=== PATIENT | female | born 1985 | race Caucasian/White ===

== ENCOUNTER 2019-04-11 17:22 | Emergency (ER) | payer OTHER ==
[2019-04-11 17:59] VITALS: BP 139/83
[2019-04-11] MEDS ORDERED: Ondansetron ODT TAB* 4 MG PO ONE (18:45)
--- NOTE | 2019-04-11 18:51 | UC ---
Headache HPI - HPI Summary HPI Summary: 33-year-old female comes in with a chief complaint of frontal headache nausea vomiting and vertigo. Couple hours ago patient was crying and then she started with frontal sinus headache that then proceeded to nausea and vomiting and feelings of vertigo. Patient reports that anytime she cries she gets similar symptoms although not always as bad. She believes it's because her sinuses do not drain very well. At this time the patient's new to [place] and does not have a primary care doctor or an ENT doctor. No sinusitis symptoms. No fevers no chills. She vomited several times and had some spinning dizziness with this episode. She does feel mildly improved upon my initial evaluation. No weakness or numbness or change in vision or speech. Today also the patient tripped and fell and and suffered a 1 cm shallow avulsion laceration on her right index finger. Patient wonders if she needs any antibiotics. Finger has full range of motion patient is not concerned of any broken bones. - History Of Current Complaint Chief Complaint: UCHeadaobinna Stated Complaint: SINUS PRESSURE, VOMITING Time Seen by Provider: 04/11/19 18:32 Hx Last Menstrual Period: 1 week ago Pain Intensity: 3 - Allergies/Home Medications Allergies/Adverse Reactions: Allergies Allergy/AdvReac Type Severity Reaction Status Date / Time morphine Allergy n/v Verified 04/11/19 17:59 PMH/Surg Hx/FS Hx/Imm Hx Previously Healthy: Yes - Surgical History Surgical History: Yes Surgery Procedure, Year, and Place: wisdom teeth extraction, tonsillectomy - Family History Known Family History: Positive: Non-Contributory - Social History Alcohol Use: Rare Substance Use Type: None Smoking Status (MU): Never Smoked Tobacco Review of Systems All Other Systems Reviewed And Are Negative: Yes Constitutional: Positive: Negative Skin: Positive: Other - SEE HPI Eyes: Positive: Negative ENT: Positive: Sinus Congestion, Sinus Pain/Tenderness Respiratory: Positive: Negative Cardiovascular: Positive: Negative Gastrointestinal: Positive: Negative Motor: Positive: Negative Neurovascular: Positive: Negative Musculoskeletal: Positive: Negative Neurological: Positive: Headache Psychological: Positive: Negative Is Patient Immunocompromised?: No Physical Exam Triage Information Reviewed: Yes Appearance: Well-Appearing, No Pain Distress, Well-Nourished Vital Signs: Initial Vital Signs Temp 96.9 F 04/11/19 17:54 Pulse 92 04/11/19 17:54 Resp 16 11/21/19 17:54 BP 139/83 04/11/19 17:54 Pulse Ox 100 04/11/19 17:54 Vital Signs Reviewed: Yes Eye Exam: Normal Eyes: Positive: Conjunctiva Clear, Other: - PERRLA EOMI. No photophobia. ENT: Positive: Pharynx normal, Sinus tenderness - FRONTAL Neck: Positive: Supple Respiratory: Positive: Lungs clear, Normal breath sounds, No respiratory distress Cardiovascular: Positive: RRR Musculoskeletal: Positive: Strength Intact, ROM Intact Neurological: Positive: Alert Psychological: Positive: Age Appropriate Behavior Skin Exam: Normal Headache Course/Dx - Course Course Of Treatment: Patient is improving in the clinic. Patient given Zofran 4 mg ODT in clinic. Center prescription home for more Zofran and also for meclizine to be used as needed. Prescription for Keflex to be used if there is any signs of infection on the finger. No signs of infection at this time. With the patient's recurrent headaches with any kind of crying and her sinus problems I recommended follow-up with ENT. Patient's also given the physician referral phone number to obtain a primary care physician. Reevaluate sooner if worse or any questions or concerns. - Differential Dx/Diagnosis Provider Diagnosis: Headache, Nausea & vomiting, Vertigo, Laceration of right index finger Discharge ED - Sign-Out/Discharge Documenting (check all that apply): Patient Departure All imaging exams completed and their final reports reviewed: No Studies - Discharge Plan Condition: Stable Disposition: HOME Prescriptions: Cephalexin CAP* [Keflex CAP*] 500 mg PO TID #21 cap Meclizine HCl [Motion Sickness Relief] 25 mg PO Q6HR PRN #20 tablet PRN Reason: Vertigo Ondansetron ODT TAB* [Zofran 4 MG Odt TAB*] 4 mg PO Q6H PRN #15 tab.odt PRN Reason: Nausea Patient Education Materials: Vertigo (ED), Acute Headache (ED), Acute Nausea and Vomiting (ED), Finger Laceration (ED) Referrals: [facility]FERRAL [Outside] Pedro Milligan MD [Medical Doctor] - Stephen Diaz MD [Medical Doctor] - Additional Instructions: FOLLOW UP WITH YOUR PRIMARY CARE DOCTOR IF NOT COMPLETELY IMPROVED. FOLLOW UP WITH ENT FOR YOUR SINUS ISSUES. GET REEVALUATED SOONER IF NOT IMPROVED OR WORSE OR ANY QUESTIONS OR CONCERNS. - Billing Disposition and Condition Condition: STABLE Disposition: Home
== END 2019-04-11 19:14 | disposition home or self-care (01) ==
LOC: UCEAST 17:22
DX: S61.210A Laceration without foreign body of right index finger without damage to nail, initial encounter (principal); R11.2 Nausea with vomiting, unspecified; R42 Dizziness and giddiness; R09.89 Other specified symptoms and signs involving the circulatory and respiratory systems; Z88.5 Allergy status to narcotic agent; W01.0XXA Fall on same level from slipping, tripping and stumbling without subsequent striking against object, initial encounter; Y92.9 Unspecified place or not applicable
CPT/HCPCS: 99202; A9270-GY; G0463

== ENCOUNTER 2019-08-10 17:33 | Emergency (ER) | payer OTHER ==
--- NOTE | 2019-08-10 17:55 | UC ---
Complaint Female HPI - HPI Summary HPI Summary: R sided abd pain which has since resolved and returned that started this AM. She feels its UTI but not sure. declines sti testing. - History Of Current Complaint Chief Complaint: UCAbdominalPain Stated Complaint: RT SIDE ABDOMINAL PAIN Time Seen by Provider: 08/10/19 17:54 Hx Obtained From: Patient Hx Last Menstrual Period: just getting over it Pain Intensity: 4 Pain Scale Used: 0-10 Numeric Aggravating Factor(s): Urination Alleviating Factor(s): Nothing - Allergies/Home Medications Allergies/Adverse Reactions: Allergies Allergy/AdvReac Type Severity Reaction Status Date / Time morphine Allergy n/v Verified 08/10/19 17:51 Home Medications: Home Medications Meclizine HCl [Motion Sickness Relief] 25 mg PO Q6HR PRN #20 tablet 04/11/19 [ Rx Confirmed 08/10/19] Nitrofurantoin Macrocrystals* [Macrodantin 100 mg*] 100 mg PO BID 10 Days #20 cap 08/10/19 [Rx] PMH/Surg Hx/FS Hx/Imm Hx - Additional Past Medical History Additional PMH: no chronic illness Previously Healthy: Yes - Surgical History Surgical History: Yes Surgery Procedure, Year, and Place: wisdom teeth extraction, tonsillectomy - Family History Known Family History: Positive: Non-Contributory - Social History Alcohol Use: Rare Substance Use Type: None Smoking Status (MU): Never Smoked Tobacco Review of Systems All Other Systems Reviewed And Are Negative: Yes Constitutional: Negative: Fever Gastrointestinal: Positive: Abdominal Pain - right sided Genitourinary: Positive: Frequency. Negative: Vaginal/Penile Discharge, Vaginal /Penile Pain Physical Exam Triage Information Reviewed: Yes Appearance: Well-Appearing Vital Signs Reviewed: Yes Respiratory: Positive: No respiratory distress Abdomen Description: Positive: Nontender, Soft. Negative: CVA Tenderness (R), CVA Tenderness (L), Guarding Complaint Female Dx - Course Course Of Treatment: Presumed UTI in afebrile pt. but stone or other etiologies cannot be ruled out. For now will tx but have asked pt to go to ED should pain worsen in any way. exam unremarkable. declined sti testing. of note i wore mask and goggles w/ hair coverage. - Differential Dx/Diagnosis Differential Diagnosis/HQI/PQRI: Appendicitis, Ovarian Cyst, Ovarian Torsion, Other Provider Diagnosis: Right sided abdominal pain Discharge ED - Sign-Out/Discharge Documenting (check all that apply): Patient Departure All imaging exams completed and their final reports reviewed: No Studies - Discharge Plan Condition: Good Disposition: HOME Prescriptions: Nitrofurantoin Macrocrystals* [Macrodantin 100 mg*] 100 mg PO BID 10 Days #20 cap Patient Education Materials: Urinary Tract Infection in Women (ED) Referrals: No Primary Care Phys,NOPCP [Primary Care Provider] - Additional Instructions: see patient education if pain is worsening please go to ED - Billing Disposition and Condition Condition: GOOD Disposition: Home
[2019-08-10 18:02] VITALS: BP 145/97
[2019-08-10] MEDS ORDERED: Nitrofurantoin Macrocrystals* 50 MG CAP PO ONE (18:53)
== END 2019-08-10 18:58 | disposition home or self-care (01) ==
LOC: UCEAST 17:33
DX: R10.31 Right lower quadrant pain (principal); R35.0 Frequency of micturition; Z88.5 Allergy status to narcotic agent
CPT/HCPCS: 81003; 84702; 87086; 99212; A9270-GY; G0463

== ENCOUNTER 2019-08-10 20:14 | Emergency (ER) | payer OTHER ==
[2019-08-10] MEDS ORDERED: NS 0.9% 1000 ML** 1,000 ML IV ONE (20:25)
[2019-08-10] MEDS ORDERED: Ketorolac INJ* 30 MG/ML 1 ML VIAL IV PUSH ONE (20:40)
[2019-08-10 20:51] LABS: ABS Eosinophils 0.1 10^3/ul (0-0.6); ABS Lymphocytes 1.7 10^3/ul (1.0-4.8); ABS Neutrophils 10.6 10^3/ul (1.5-7.7); Hematocrit 43 % (35-47); Hemoglobin 14.9 g/dL (12.0-16.0); Lymphocyte % 12.5 %; Mean Corpuscular HGB Conc 35 g/dL (31-36); Mean Corpuscular Hemoglobin 31 pg (27-31); Mean Corpuscular Volume 89 fL (80-97); Mean Platelet Volume 7.7 fL (7.4-10.4); Platelet Count 370 10^3/uL (150-450); Red Blood Count 4.86 10^6 /uL (3.70-4.87); Red Cell Distribution Width 13 % (10-15); White Blood Count 13.4 10^3/uL (3.5-10.8)
--- NOTE | 2019-08-10 21:01 | ED ---
Abdominal Pain/Female - HPI Summary HPI Summary: 33 year old F presenting to [facility] via private car has a chief complaint of right abdominal pain since 0400 on 08/10/2019. The patient states that her abdominal pain "starts as a slow little ebb" that evolves into a constant throbbing. She states that her pain was temporarily alleviated after taking a nap at 0400 on 08/10/2019 but later returned. The patient rates the pain as 7/ 10 in severity. Patient denies having experiencing this pain before. She states that her right abdominal pain radiates towards the right side of her back. She denies fever and vomiting. Patient states that she has blood in her urine due to her menstrual cycle. Patient denies PMHx of kidney stones, gallstones, ovarian cysts, ovarian torsions. Patient states that she occasionally drinks. Patient denies having eaten since 08/09/2019. Home Medications Medication Instructions Recorded Confirmed Type Meclizine HCl [Motion Sickness 25 mg PO Q6HR PRN #20 tablet 04/11/19 08/10/19 Rx Relief] Nitrofurantoin Macrocrystals* 100 mg PO BID 10 Days #20 cap 08/10/19 Rx [Macrodantin 100 mg*] - History of Current Complaint Chief Complaint: EDAbdPain Stated Complaint: RIGHT ABD PAIN PER PT Time Seen by Provider: 08/10/19 20:23 Hx Obtained From: Patient Hx Last Menstrual Period: just getting over it Onset/Duration: Still Present Pain Intensity: 7 Pain Scale Used: 0-10 Numeric Alleviating Factor(s): Other: - Patient states that her right sided abdominal pain was temporarily alleviated by taking a nap. Associated Signs and Symptoms: Positive: Back Pain - Patient states that her right sided abdominal pain radiates to her lower back., Other: - Patient states that she has blood in her urine due to her menstrual cycle.. Negative: Fever, Vomiting Allergies/Adverse Reactions: Allergies Allergy/AdvReac Type Severity Reaction Status Date / Time morphine Allergy n/v Verified 08/10/19 20:16 Home Medications: Home Medications Meclizine HCl [Motion Sickness Relief] 25 mg PO Q6HR PRN #20 tablet 04/11/19 [ Rx Confirmed 08/11/19] Ondansetron HCl [Zofran] 4 mg PO Q8HR PRN #12 tablet 08/11/19 [Rx] Tamsulosin CAP* [Flomax CAP*] 0.4 mg PO DAILY #5 cap 08/11/19 [Rx] PMH/Surg Hx/FS Hx/Imm Hx GI History: Denies: Hx Gall Bladder Disease History: Denies: Hx Kidney Stones, Other Problems/Disorders - Patient denies having a history of ovarian cysts and ovarian torsions. - Surgical History Surgery Procedure, Year, and Place: wisdom teeth extraction, tonsillectomy Infectious Disease History: No Infectious Disease History: Denies: Traveled Outside the [place] in Last 30 Days - Family History Known Family History: Positive: Non-Contributory Negative: Blood Disorder - Social History Alcohol Use: Rare Substance Use Type: Reports: None Smoking Status (MU): Never Smoked Tobacco Review of Systems Negative: Fever Positive: Abdominal Pain - Right sided abdominal pain. . Negative: Vomiting Positive: hematuria - Patient states that she has blood in her urine due to her menstrual cycle. Positive: Other - Patient states that her abdominal pain radiates to her lower back. All Other Systems Reviewed And Are Negative: Yes Physical Exam - Summary Physical Exam Summary: Constitutional: Well-developed, Well-nourished, Alert. (-) Distressed Skin: Warm, Dry HENT: Normocephalic; Atraumatic Eyes: Conjunctiva normal Neck: Musculoskeletal ROM normal neck. (-) JVD, (-) Stridor, (-) Tracheal deviation Cardio: Rhythm regular, rate normal, Heart sounds normal; Intact distal pulses; The pedal pulses are 2+ and symmetric. Radial pulses are 2+ and symmetric. (-) Murmur Pulmonary/Chest wall: Effort normal. (-) Respiratory distress, (-) Wheezes, (-) Rales Abd: Soft, (+) tenderness, (-) Distension, (-) Guarding, (-) Rebound. Patient has right sided abdominal tenderness upon palpitation. Musculoskeletal: (-) Edema Lymph: (-) Cervical adenopathy Neuro: Alert, Oriented x3 Psych: Mood and affect Normal Triage Information Reviewed: Yes Vital Signs On Initial Exam: Initial Vitals Temp Pulse Resp BP Pulse Ox 98.3 F 90 15 142/104 99 08/10/19 20:15 08/10/19 20:15 08/10/19 20:15 08/10/19 20:15 03/21/20 20:15 Vital Signs Reviewed: Yes Procedures - Sedation Patient Received Moderate/Deep Sedation with Procedure: No Diagnostics - Vital Signs Vital Signs Temp Pulse Resp BP Pulse Ox 08/10/19 20:15 98.3 F 90 15 142/104 99 - Laboratory Lab Results: Lab Results 08/10/19 Range/Units 20:36 WBC 13.4 H (3.5-10.8) 10^3/uL RBC 4.86 (3.70-4.87) 10^6 /uL Hgb 14.9 (12.0-16.0) g/dL Hct 43 (35-47) % MCV 89 (80-97) fL MCH 31 (27-31) pg MCHC 35 (31-36) g/dL RDW 13 (10-15) % Plt Count 370 (150-450) 10^3/uL MPV 7.7 (7.4-10.4) fL Neut % (Auto) 78.5 % Lymph % (Auto) 12.5 % [place] % (Auto) 7.7 % Eos % (Auto) 1.0 % Baso % (Auto) 0.3 % Absolute Neuts (auto) 10.6 H (1.5-7.7) 10^3/ul Absolute Lymphs (auto) 1.7 (1.0-4.8) 10^3/ul Absolute Monos (auto) 1.0 H (0-0.8) 10^3/ul Absolute Eos (auto) 0.1 (0-0.6) 10^3/ul Absolute Basos (auto) 0.0 (0-0.2) 10^3/ul Absolute Nucleated RBC 0.0 10^3/ul Nucleated RBC % 0.0 Result Diagrams: 08/10/19 20:36 08/10/19 20:36 Lab Statement: Any lab studies that have been ordered have been reviewed, and results considered in the medical decision making process. - CT Abdominal/Pelvic CT CT Interpretation Completed By: Radiologist Summary of CT Findings: IMPRESSION: 1. Distal right ureteral calculus measuring 2-3 mm adjacent to the UVJ with. obstructive uropathy of the right upper tract. 2. 2.5 cm right ovarian cyst. 3. Fatty infiltration of the liver with multiple cysts. Dr. Vargas has reviewed this impression. Abdominal Pain Fem Course/Dx - Course Course Of Treatment: Patient presented to [facility] with a chief complaint of right abdominal radiating pain since 0400 on 08/10/2019. The patient rates the pain as 7/10 in severity. Patient denies having experiencing this pain before. She denies fever and vomiting, but states that her right abdominal pain radiates towards the right side of her back. Patient states that she has blood in her urine due to her menstrual cycle. Patient denies PMHx of kidney stones, gallstones, ovarian cysts, ovarian torsions. Her physical exam is postive for right sided abdominal tenderness upon palpitation. Her abdominal/pelvic CT showed (1) distal right ureteral calculus measuring 2-3 mm adjacent to the UVJ with. obstructive uropathy of the right upper tract, (2) 2.5 cm right ovarian cyst, and (3) fatty infiltration of the liver with multiple cysts. The following abnormalities were found in her blood work: 13.4 WBC, 10.6 Absolute Neuts, 1.0 Absolute Monos, 0.96 Creatinine, 24.0 BUN/Creatinine Ratio, 1.30 Total Bilirubin. The following abnormalities were found in her urine sample: 1.009 ur specific gravity, 1+ urine ketones, 2+ urine blood, 1+ (3-5/hpf) urine RBC, Ur squamous epith cells present. She recieved the following medications during ED stay: 25 mg of IV Benadryl, 1 mg of Dilaudid INJ, 137 mL of Omnipaque 300 Constrast, 30 mg of Toradol INJ, 10 mg of IV Reglan , 1000 mL of Ns 0.9% 2x , 4 mg Zofran INJ, 0.4 mg Flomax CAP. Patient was discharged to home to followup with a urologist within 2 days. - Diagnoses Provider Diagnoses: Ureteral stone Discharge ED - Sign-Out/Discharge Documenting (check all that apply): Patient Departure - Discharge. - Discharge Plan Condition: Stable Disposition: HOME Prescriptions: Ondansetron HCl [Zofran] 4 mg PO Q8HR PRN #12 tablet PRN Reason: Nausea/Vomiting Tamsulosin CAP* [Flomax CAP*] 0.4 mg PO DAILY #5 cap Patient Education Materials: Ureteral Stones (ED) Referrals: David Medina MD [Medical Doctor] - 2 Days Additional Instructions: Please return to ED for new or worse symptoms. Please follow up with urologist within 2 days. - Billing Disposition and Condition Condition: STABLE Disposition: Home - Attestation Statements Document Initiated by Scribe: Yes Documenting Scribe: Leora Thorpe Provider For Whom Scribe is Documenting (Include Credential): Lee Vargas DO Scribe Attestation: Leora Pham, scribed for Lee Vargas DO on at 1909. Scribe Documentation Reviewed: Yes Provider Attestation: The documentation as recorded by the scribe, Leora Thorpe accurately reflects the service I personally performed and the decisions made by , Lee Vargas DO Status of Scribe Document: Viewed
[2019-08-10 21:08] LABS: ALT 31 U/L (7-52); AST 23 U/L (13-39); Albumin 4.2 g/dL (3.2-5.2); Albumin/Globulin Ratio 1.2 (1-3); Alkaline Phosphatase 56 U/L (34-104); Anion Gap 6 mmol/L (2-11); Blood Urea Nitrogen 23 mg/dL (6-24); C Reactive Protein 7.74 mg/L (<8.01); CO2 Carbon Dioxide 26 mmol/L (22-32); Calcium 9.7 mg/dL (8.6-10.3); Chloride 103 mmol/L (101-111); EGFR Non-African American 66.1 (>60); Globulin 3.6 g/dL (2-4); Glucose 93 mg/dL (70-100); Potassium 3.9 mmol/L (3.5-5.0); Sodium 135 mmol/L (135-145); Total Protein 7.8 g/dL (6.4-8.9)
[2019-08-10 21:15] LABS: HCG Pregnancy < 0.60 mIU/mL
[2019-08-10] MEDS ORDERED: Iohexol 300* (CONTRAST) 10 ML SDV IV ONE (21:43)
[2019-08-10 23:20] LABS: Urine Appearance Clear; Urine Bilirubin Negative (Negative); Urine Blood 2+ (Negative); Urine Color Yellow; Urine Glucose Negative (Negative); Urine Ketones 1+ (Negative); Urine Nitrite Negative (Negative); Urine Protein Negative (Negative); Urine Specific Gravity 1.009 (1.010-1.030); Urine Urobilinogen Negative (Negative)
[2019-08-10 23:21] LABS: Urine Bacteria Absent (Absent); Urine Red Blood Cell 1+(3-5/hpf) (Absent); Urine Squamous Epithelial Cell Present (Absent); Urine White Blood Cell Trace(0-5/hpf) (Absent)
[2019-08-11] MEDS ORDERED: Tamsulosin CAP* 0.4 MG PO ONE (00:38)
[2019-08-11] MEDS ORDERED: NS 0.9% 1000 ML** 1,000 ML IV ONE (00:45)
[2019-08-11] MEDS ORDERED: Ondansetron INJ* 2 MG/ML VIAL IV ONE (00:46)
[2019-08-11] MEDS ORDERED: HYDROmorphone INJ* 0.5 MG/0.5 ML SYRINGE IV ONE (00:46)
[2019-08-11] MEDS ORDERED: Metoclopramide IV* 5 MG/ML 2 ML VIAL IV ONE (01:57)
[2019-08-11] MEDS ORDERED: diPHENhydraMINE IV* 50 MG/ML 1 ml VIAL (BENADRYL) IV ONE (01:58)
[2019-08-11 06:10] VITALS: BP 140/87
== END 2019-08-11 06:09 | disposition home or self-care (01) ==
LOC: ED 20:14
DX: N20.1 Calculus of ureter (principal); K80.80 Other cholelithiasis without obstruction; M54.9 Dorsalgia, unspecified; R10.9 Unspecified abdominal pain; Z87.442 Personal history of urinary calculi; Z88.6 Allergy status to analgesic agent
CPT/HCPCS: 36415; 74177; 80053; 81003; 81015; 84702; 85025; 86140; 96361; 96374; 96375; 99284; J1170; J1200; J1885; J2405; J2765; Q9967